=== PATIENT | female | born 1985 | race Caucasian/White ===

== ENCOUNTER → 2022-06-28 15:30 | Outpatient (CLI) | payer OTHER, SELFPAY ==
--- NOTE | 2022-06-28 15:33 | DI.US.S_ITS ---
PROCEDURE: US SOFT TISSUE HEAD AND NECK INDICATIONS: Localized swelling, mass and lump, neck TECHNIQUE: Real-time scanning was performed of the neck region of interest, with image documentation. COMPARISON: None. FINDINGS: In the left submandibular region there is a 1.9 x 0.8 x 1.9 centimeter lymph node with abnormal cortical thickening and loss of the hilum. Comparison images on the right demonstrate normal anatomy. IMPRESSION: Enlarged abnormal lymph node in the left submandibular region. Please correlate clinically. Ultrasound-guided biopsy could be performed. If the patient is currently being treated with antibiotics recommend follow-up ultrasound to ensure resolution in 1 month. Dictated by: Pablito Fuller M.D. on 06/28/2022 at 16:47 Approved by: Pablito Fuller M.D. on 06/28/2022 at 16:50
== END ==
PROVIDERS: PCP Student in an Organized Health Care Education/Training Program; Referring Provider Student in an Organized Health Care Education/Training Program; Visit Provider Student in an Organized Health Care Education/Training Program
DX: R59.0 Localized enlarged lymph nodes (principal)
CPT/HCPCS: 76536

== ENCOUNTER → 2022-07-19 12:40 | Outpatient (CLI) | payer OTHER, SELFPAY ==
--- NOTE | 2022-07-19 | DI.US.S_ITS ---
PROCEDURE: US BIOPSY LYMPH NODE INDICATIONS: NECK MASS TECHNIQUE: The indications, alternatives, benefits, risks, and complications of the procedure were explained to the patient. Written informed consent was obtained and placed in the chart. Real-time sonography was utilized to choose the site for percutaneous lymph node sampling. The skin was prepped and draped in the usual sterile fashion. 1% lidocaine was infiltrated down to the site of interest. A coaxial needle was then advanced into the site of interest under direct sonographic visualization. A biopsy apparatus was then utilized, and core biopsies were obtained. The needle was then withdrawn; a bandage was applied to the biopsy site. COMPARISON: None. FINDINGS: Biopsy site(s): Left submandibular region Needle: [employer] biopsy needle set. 20 gauge Number of passes: 8 Medications: 1% lidocaine for local anaesthesia. Complications: None. IMPRESSION: Successful ultrasound-guided left submandibular lymph node biopsy, with pathology results pending. Dictated by: Paul Rae M.D. on 07/19/2022 at 21:24 Approved by: Paul Rae M.D. on 07/19/2022 at 21:25
--- NOTE | 2022-07-19 | PATH_ITS ---
[facility] Accession Number: [id number] No. of containers..01 Tissue . 01 Material submitted: . submandibular gland - LEFT SUBMANDIBULAR LYMPH NODE . 01 Diagnosis: Left Submandibular Lymph Node, Needle Core Biopsy: Predominantly fibromuscular tissue. Scant salivary gland parenchyma. Lymphoid tissue not present in specimen. MRV 07/21/2022 1548 Local . 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 Initial and deeper sections are obtained and reviewed. . 01 Electronically signed: . Briana Quezada MD, Pathologist NPI- [id number] . 01 Gross description: . Received is one formalin-filled container labeled with the patient's name, designated left submandibular lymph node, are four light olson pieces of tissue which range in size from 0.1 x 0.1 x 0.1 cm to 0.3 x 0.1 x 0.1 cm. All fragments are totally submitted in cassette A1. Collection date 07/19/2022 at 1414 hours, total fixation time approximately 13 hours. ([id number]) /JAROD 07/20/2022 05 Local . 01 Pathologist provided ICD-10: R22.1 . 01 CPT . 880558 Specimen Comment: A courtesy copy of this report has been sent to [facility] Pathology Performed at: 01 [facility] [address] [place] [address], [place], [place] [id number] MD Casimiro Norris MD Phone: [phone]
== END ==
PROVIDERS: PCP Student in an Organized Health Care Education/Training Program; Referring Provider Student in an Organized Health Care Education/Training Program; Visit Provider Student in an Organized Health Care Education/Training Program
DX: R22.1 Localized swelling, mass and lump, neck (principal)
CPT/HCPCS: 38505; 76942